=== PATIENT | male | born 1950 | race Caucasian/White ===

== ENCOUNTER → 2019-05-09 | Outpatient (CLI) | payer MEDICARE ==
--- NOTE | 2019-05-09 15:47 | RAD ---
EXAM DESCRIPTION: Ribs,Left 3 Views CLINICAL HISTORY: 68 years Male, RIB PAIN, PLEURODYNIA COMPARISON: None. FINDINGS: Left ribs appear intact. No fracture or dislocation. IMPRESSION: Negative for fracture. Electronically signed by: Piyush Higgins MD 05/09/2019 3:46 PM CDT
== END ==
LOC: RAD 15:05
PROVIDERS: ATTEND Nurse Practitioner
DX: R07.81 Pleurodynia (principal)